=== PATIENT | male | born 1965 | race Caucasian/White ===

== ENCOUNTER 2016-06-15 06:03 | Day surgery (SDC) | payer OTHER ==
[~2016-06-15 06:03] MED LIST: Lactated Ringers 1,000 ML IV ONE; Lactated Ringers 1,000 ML IV SCH
[2016-06-15 07:57] VITALS: O2SAT 98
[2016-06-15] MEDS ORDERED: Ketamine HCl 50 MG/ML IV ONE (08:00)
[2016-06-15] MEDS ORDERED: DIPRIVAN 200 MG/20 ML IV ONE (08:00)
[2016-06-15 08:46] VITALS: BP 114/74; PULSE 52
--- NOTE | 2016-06-15 11:40 | OP ---
SURGERY DATE/TIME: 06/15/2016 0700 PREOPERATIVE DIAGNOSIS: Gastroesophageal reflux disease. POSTOPERATIVE DIAGNOSIS: Mild duodenitis. PROCEDURE: EGD. SURGEON: Maciel Burr M.D. ANESTHESIA: MAC by [place] CRNA. ESTIMATED BLOOD LOSS: Minimal. SPECIMENS: One cold forceps biopsy of the duodenum. DESCRIPTION OF PROCEDURE: After informed written consent was obtained, the patient was taken to the endoscopy suite. He underwent monitored anesthesia and a bite block was inserted. The endoscope was inserted in the posterior oropharynx and under direct visualization the esophagus was traversed. The esophageal mucosa and gastroesophageal junction appeared normal upon entry into the stomach. The stomach had a normal rugated gastric mucosa free of any lesions or defects. The area of the gastric antrum was inspected and noted to be free of any lesions or suspicious areas. The pylorus was traversed and the proximal duodenum had some minimal duodenitis-type changes with no bleeding or focal ulcerations. A cold forceps biopsy was taken from this area in the business banking representative area and sent for pathology testing. There was minimal bleeding after removal of the sample. Upon withdrawal again the entire gastric mucosa, gastroesophageal junction and esophageal mucosa were closely inspected and noted to be within normal limits. The scope was removed and the patient was transferred back to the recovery room in excellent condition.
== END 2016-06-15 08:30 | disposition home or self-care (01) ==
LOC: SDC 06:03
PROVIDERS: ATTEND Family Medicine
PROC: 0DB98ZX Excision of Duodenum, Via Natural or Artificial Opening Endoscopic, Diagnostic (ICD-10-PCS; principal; 2016-06-15)
DX: K29.80 Duodenitis without bleeding (principal)
CPT/HCPCS: 00740; 36415; 88305; J2704

== ENCOUNTER 2019-07-23 06:51 | Day surgery (SDC) | payer OTHER ==
[2019-07-23] MEDS ORDERED: Lactated Ringers 1,000 ML IV SCH (07:00)
[2019-07-23] MEDS ORDERED: Lactated Ringers 1,000 ML IV ONE (07:05)
[2019-07-23] MEDS ORDERED: DIPRIVAN 200 MG/20 ML IV ONE (07:46)
[2019-07-23] MEDS ORDERED: Xylocaine-Mpf 2% 5 Ml Vial ONE (07:46)
[2019-07-23 09:22] VITALS: PULSE 52
[2019-07-23 09:24] VITALS: BP 129/87
[2019-07-23 09:26] VITALS: O2SAT 99
--- NOTE | 2019-07-23 10:27 | OP ---
SURGERY DATE/TIME: 07/23/2019 0803 PREOPERATIVE DIAGNOSIS: Epigastric abdominal pain. POSTOPERATIVE DIAGNOSIS: Mild gastritis. PROCEDURE: EGD. SURGEON: Maciel Burr M.D. ANESTHESIA: MAC. ESTIMATED BLOOD LOSS: Minimal. SPECIMENS: Two cold forceps biopsies from the gastric antrum taken for Helicobacter pylori testing. DESCRIPTION OF PROCEDURE: After informed written consent was obtained, the patient was taken to the endoscopy suite. He underwent monitored anesthesia after a bite block was inserted. The endoscope was easily passed through the posterior oropharynx and the esophagus had a normal mucosal surface free of any lesions or defects. Gastroesophageal junction likewise appeared normal upon entry into the stomach. The gastric cavity had a normal rugated gastric mucosa free of any obvious lesions or defect. There were some mild gastritis-type changes in the gastric antrum but no obvious ulcerations or evidence of bleeding, etc. The pylorus was traversed and the first and second portions of the duodenum showed no obvious mucosal abnormalities. Two cold forceps biopsies were taken from the gastric antrum and sent for Helicobacter pylori testing. Upon withdrawal again all other mucosal structures appeared within normal limits. The scope was removed and the patient was transferred to the recovery room in good condition. He has been advised to avoid all NSAID's and continue proton pump inhibitor therapy at this time and await pathology results.
== END 2019-07-23 09:12 | disposition home or self-care (01) ==
LOC: SDC 06:51
PROVIDERS: ATTEND Family Medicine
DX: K29.50 Unspecified chronic gastritis without bleeding (principal)
CPT/HCPCS: J2704